=== PATIENT | female | born 1960 | race Caucasian/White ===

== ENCOUNTER 2017-01-08 08:25 | Day surgery (SDC) | payer OTHER ==
[2017-01-08] MEDS ORDERED: MEPERIDINE HCL/PF 100 MG/ML AMP ONE (09:08)
[2017-01-08] MEDS ORDERED: SIMETHICONE 40 MG/0.6 ML ML ONE (09:09)
[2017-01-08] MEDS ORDERED: MIDAZOLAM HCL 5 MG/5 ML VIAL ONE (09:09)
[2017-01-08 14:44] VITALS: BP 120/77; PULSE 75; RESP 16
== END 2017-01-08 11:40 | disposition home or self-care (01) ==
LOC: SGI 08:25
PROVIDERS: ATTEND Internal Medicine Gastroenterology
DX: D12.2 Benign neoplasm of ascending colon (principal); R10.13 Epigastric pain; K21.9 Gastro-esophageal reflux disease without esophagitis; K44.9 Diaphragmatic hernia without obstruction or gangrene; D12.3 Benign neoplasm of transverse colon; D12.5 Benign neoplasm of sigmoid colon; K64.8 Other hemorrhoids; Z79.899 Other long term (current) drug therapy; E66.9 Obesity, unspecified; E78.5 Hyperlipidemia, unspecified; I10 Essential (primary) hypertension; E03.9 Hypothyroidism, unspecified
CPT/HCPCS: 36415; 43239; 45380; 45385; 87081; 88305; 88312; 88313; J2175; J2250